=== PATIENT | male | born 1960 | race Asian ===

== ENCOUNTER 2020-09-06 08:20 | Emergency (ER) | payer OTHER ==
[2020-09-06 08:50] VITALS: BMI 33.3
[2020-09-06] MEDS ORDERED: SODIUM CHLORIDE 0.9% 1000 ML INFUS.BAG IV ONE (08:50)
[2020-09-06 09:54] LABS: BASO % 1.4 % (0-2.0); EOS % 0.5 % (0-4.5); HEMATOCRIT 44.2 % (35.4-49); LYMPH % 17.7 % (8-40); MCH 30.8 pg (25.7-33.7); MCHC 33.8 g/dl (32.0-35.9); MEAN PLT VOLUME 7.1 fl (7.5-11.1); MONO % 11.4 % (3.8-10.2); PLATELET COUNT 249 10^3/uL (134-434); RBC 4.86 M/mm3 (4.00-5.60); RDW 13.1 % (11.9-15.9); WHITE BLOOD COUNT 4.6 K/mm3 (4.0-10.0)
[2020-09-06 10:15] LABS: CHLORIDE 108 mmol/L (98-107); SODIUM 140 mmol/L (136-145)
[2020-09-06 10:17] LABS: CALCIUM 9.1 mg/dL (8.5-10.1)
[2020-09-06 10:18] LABS: ALBUMIN 4.1 g/dl (3.4-5.0); ANION GAP 9 MMOL/L (8-16); BLOOD UREA NITROGEN 9.7 mg/dL (7-18); CO2 24 mmol/L (21-32); GLUCOSE,RANDOM 88 mg/dL (74-106)
[2020-09-06 10:21] LABS: CREATININE 0.9 mg/dL (0.55-1.3); SGOT/AST 23 U/L (15-37); SGPT/ALT 34 U/L (13-61)
[2020-09-06 10:23] LABS: BILIRUBIN,TOTAL 0.6 mg/dL (0.2-1); TOT PROT 7.7 g/dl (6.4-8.2)
[2020-09-06 10:24] LABS: ALK PHOS 73 U/L (45-117)
[2020-09-06 11:39] VITALS: BP 128/87; PULSE 84; TEMP 98.1
== END 2020-09-06 11:39 | disposition home or self-care (01) ==
LOC: JER 08:20
DX: R00.2 Palpitations (principal); R00.0 Tachycardia, unspecified; R03.0 Elevated blood-pressure reading, without diagnosis of hypertension
CPT/HCPCS: 36415; 80053; 82962; 84439; 84443; 84481; 84484; 85025; 93005; 93010; 99284-25

== ENCOUNTER 2023-10-29 04:46 | Day surgery (SDC) | payer OTHER ==
[2023-10-08 12:18] VITALS: BMI 29.7
[2023-10-29 08:04] VITALS: TEMP 98
[2023-10-29 08:47] VITALS: BP 109/75; PULSE 70; RESP 21
== END 2023-10-29 08:40 | disposition home or self-care (01) ==
LOC: JASU-ENDO 04:46
PROVIDERS: ATTEND Internal Medicine Gastroenterology
PROC: 0DJD8ZZ Inspection of Lower Intestinal Tract, Via Natural or Artificial Opening Endoscopic (ICD-10-PCS; principal; 2023-10-29 07:30)
DX: Z12.11 Encounter for screening for malignant neoplasm of colon (principal); K64.8 Other hemorrhoids
CPT/HCPCS: 82962